=== PATIENT | female | born 1980 | race Caucasian/White ===

== ENCOUNTER 2021-08-06 04:29 | Day surgery (SDC) | payer OTHER ==
[2021-08-04 12:53] VITALS: BMI 23.0
[2021-08-06] MEDS ORDERED: ONDANSETRON 4 MG/2 ML VIAL IVPUSH PRN (14:48)
[2021-08-06] MEDS ORDERED: PROMETHAZINE HCL 25 MG/1 ML VIAL IVPB PRN (14:48)
[2021-08-06] MEDS ORDERED: LACTATED RINGERS SOLUTION 1,000 ML IV SCH (15:00)
[2021-08-06] MEDS ORDERED: PROPOFOL 20 ML ONE ×2 (16:00)
[2021-08-06] MEDS ORDERED: MIDAZOLAM HCL 2 MG/2 ML SINGLE DOSE VIAL ONE (16:00)
[2021-08-06] MEDS ORDERED: LIDOCAINE HCL/PF 2% SDV 5ML VIAL ONE (16:01)
[2021-08-06] MEDS ORDERED: LIDOCAINE HCL 1%, 10 MG/ML (20ML VIAL) ONE (16:05)
[2021-08-06] MEDS ORDERED: ceFAZolin SODIUM 1 GM VIAL IVPB ONE (16:22)
[2021-08-06] MEDS ORDERED: DEXAMETHASONE SOD PHOSPHATE 4 MG/1 ML VIAL ONE (16:26)
[2021-08-06] MEDS ORDERED: KETOROLAC TROMETHAMINE 30 MG/1 ML VIAL ONE (16:59)
[2021-08-06] MEDS ORDERED: KETOROLAC TROMETHAMINE 30 MG/1 ML VIAL IVPUSH PRN (17:10)
[2021-08-06 18:15] VITALS: PULSE 63
[2021-08-06 18:29] VITALS: BP 112/69; TEMP 97.5
== END 2021-08-06 18:41 | disposition home or self-care (01) ==
LOC: JASU-SURG 04:29
PROVIDERS: ATTEND Surgery Vascular Surgery
PROC: 06DY3ZZ Extraction of Lower Vein, Percutaneous Approach (ICD-10-PCS; principal; 2021-08-06 14:30)
DX: I83.92 Asymptomatic varicose veins of left lower extremity (principal)
CPT/HCPCS: 81025; 88304-TC; 94760

== ENCOUNTER 2022-03-17 08:57 | Emergency (ER) | payer OTHER ==
[2022-03-17 09:03] VITALS: BP 117/83; PULSE 76; TEMP 97.9; BMI 22.1
[2022-03-18 13:07] LABS: SARS-CoV-2 NAA Not Detected (Not Detected)
== END 2022-03-17 10:33 | disposition home or self-care (01) ==
LOC: JERFT 08:57
DX: R07.0 Pain in throat (principal)
CPT/HCPCS: 70360-TC-FY; 87651; 87804; 99284-25; C9803-CS; U0003; U0005

== ENCOUNTER 2023-12-12 07:21 | Emergency (ER) | payer OTHER ==
[2023-12-12 07:28] VITALS: BP 124/82; PULSE 76; RESP 16; TEMP 98.1; BMI 23.0
== END 2023-12-12 08:33 | disposition home or self-care (01) ==
LOC: FER 07:21
PROC: 0HQ7XZZ Repair Abdomen Skin, External Approach (ICD-10-PCS; principal; 2023-12-12)
DX: S31.114A Laceration without foreign body of abdominal wall, left lower quadrant without penetration into peritoneal cavity, initial encounter (principal); W26.8XXA Contact with other sharp object(s), not elsewhere classified, initial encounter
CPT/HCPCS: 99282-25

== ENCOUNTER 2023-12-20 09:55 | Emergency (ER) | payer OTHER ==
[2023-12-20 10:02] VITALS: BP 135/95; PULSE 72; RESP 18; TEMP 98.9; BMI 23.0
== END 2023-12-20 10:21 | disposition home or self-care (01) ==
LOC: FER 09:55
DX: Z48.02 Encounter for removal of sutures (principal)
CPT/HCPCS: 99281-25